=== PATIENT | male | born 1995 | race Two or more races ===

== ENCOUNTER 2019-02-16 10:19 | Emergency (ER) | payer SELFPAY ==
--- NOTE | 2019-02-16 11:32 | EDM.PDOC ---
ED HPI GENERAL MEDICAL PROBLEM - General Chief Complaint: Upper Extremity Injury/Pain Stated Complaint: PAIN IN BOTH HANDS Time Seen by Provider: 02/16/19 11:14 Source of Information: Reports: Patient History Limitations: Reports: No Limitations - History of Present Illness INITIAL COMMENTS - FREE TEXT/NARRATIVE: Patient is a 23-year-old male who presents ED complaining of bilateral hand pain with paresthesias. Overr the past 4 days the discomfort has worsened. 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 Most notably the n/t gets worse at night with sleeping. There has been no swelling, recent trauma, redness, or increased warmth noted precipitating the worsening discomfort. He has been using Tylenol on intermittent basis with some relief. Discomfort to the hand and wrist are described as a dull ache. He has a history of hypertension and asthma. Currently on no medications. He does not smoke or use recreational drugs. He does consume alcohol on intermittent basis. Surgical history none. PCP none. Bilateral Hand Pain Score (Numeric/FACES): 10 - Related Data Allergies Allergy/AdvReac Type Severity Reaction Status Date / Time No Known Allergies Allergy Verified 02/16/19 10:35 Home Meds: Home Meds Naproxen 500 mg PO BID #28 tablet 02/16/19 [Rx] Past Medical History Cardiovascular History: Reports: Hypertension Respiratory History: Reports: Asthma Social & Family History - Tobacco Use Smoking Status *Q: Never Smoker - Caffeine Use Caffeine Use: Reports: Coffee, Energy Drinks - Recreational Drug Use Recreational Drug Use: No Review of Systems - Review of Systems Review Of Systems: ROS reveals no pertinent complaints other than HPI. ED EXAM, GENERAL - Physical Exam Exam: See Below Exam Limited By: No Limitations General Appearance: Alert, WD/WN, No Apparent Distress Eye Exam: Bilateral Eye: Normal Inspection Ears: Hearing Grossly Normal Nose: Normal Inspection Throat/Mouth: Normal Voice, No Airway Compromise Neck: Normal Inspection, Supple, Non-Tender, Full Range of Motion Respiratory/Chest: No Respiratory Distress, Lungs Clear, Normal Breath Sounds, No Accessory Muscle Use, Chest Non-Tender Cardiovascular: Normal Peripheral Pulses, Regular Rate, Rhythm, No Murmur Peripheral Pulses: 2+: Radial (L), Radial (R) Extremities: Normal Inspection, Normal Range of Motion, No Pedal Edema, Normal Capillary Refill, Other (Tinel and Phalen test positive. No swelling, redness, increased warmth. Sensation is intact. Full range of all joints of the wrist, hand, and fingers.) Neurological: Alert, Oriented, CN II-XII Intact, Normal Cognition, No Motor/ Sensory Deficits Psychiatric: Normal Affect, Normal Mood Skin Exam: Warm, Dry, Intact, Normal Color, No Rash Course - Vital Signs Last Recorded V/S: Last Vital Signs Temp 98.2 F 02/16/19 10:32 Pulse 101 H 02/16/19 10:32 Resp 20 02/16/19 10:32 BP 146/92 H 02/16/19 10:32 Pulse Ox 97 02/16/19 10:32 - Re-Assessments/Exams Free Text/Narrative Re-Assessment/Exam: Per history and physical examination patient has bilateral carpal tunnel syndrome. Tinel and Phalen's test are both positive. Treatment will consist of symptomatic care including: Wrist splints, anti-inflammatories, and Tylenol as well refraining from any activities that cause worsening discomfort. I have asked nursing staff to apply wrist splints bilaterally. Unfortunately only have one wrist splint is available. I will discharge patient home with instructions to go to [facility] and purchase wrist splints to wear at night and throughout the course today as needed. He will sleep with the wrist splints. He will establish medical care with a PCP here locally and also will be instructed to follow-up with orthopedic surgeon of his choice if symptoms persist. Patient had no further questions or concerns he treatment plan. Return precautions were discussed with the patient. Departure - Departure Time of Disposition: 11:32 Disposition: Home, Self-Care 01 Condition: Good Clinical Impression: Carpal tunnel syndrome on both sides - Discharge Information Prescriptions: Naproxen 500 mg PO BID #28 tablet Instructions: Carpal Tunnel Syndrome, Tolx-ne-Gloe Referrals: Joe Napoles MD [Physician] - Forms: ED Department Discharge, ED Return to Work/School Form Additional Instructions: Where the wrist splints with sleeping. May wear doing the day as well. Treatment will consist of refraining of activities that cause worsening pain. Utilize the naproxen 500mg PO 1 tab twice a day and tylenol 650mg every 6 hrs as needed for the pain. Please establish medical care with PCP here locally. See orthopedic surgeon of your choice in the next 10 to 14 days for reevaluation. Please return to the E.D. for any new or worsening symptoms.
== END 2019-02-16 11:57 | disposition home or self-care (01) ==
LOC: JD.ED 10:19
DX: G56.03 Carpal tunnel syndrome, bilateral upper limbs (principal); I10 Essential (primary) hypertension
CPT/HCPCS: 99283